=== PATIENT | male | born 1975 | race Caucasian/White ===

== ENCOUNTER 2019-03-06 12:57 | Emergency (ER) | payer OTHER ==
[~2019-03-06] VITALS: Ht 170.2 cm; Wt 71.7 kg
[2019-03-06] MEDS ORDERED: NOVOLOG100 UNIT/1 (13:27)
[2019-03-06] MEDS ORDERED: LANTUS SOL100 UNIT/1 (13:28)
[2019-03-06] MEDS ORDERED: MS CONTIN (13:28)
[2019-03-06] MEDS ORDERED: CLONAZEPAM2 MG (13:29)
== END 2019-03-06 18:21 | disposition home or self-care (01) ==
LOC: ER 12:57
DX: E86.0 Dehydration (principal)

== ENCOUNTER 2019-03-07 12:29 | Emergency (ER) | payer OTHER ==
[~2019-03-07] VITALS: Ht 172.7 cm; Wt 71.7 kg
== END 2019-03-07 18:43 | disposition home or self-care (01) ==
LOC: ER 12:29
DX: E86.0 Dehydration (principal); R19.7 Diarrhea, unspecified; R10.84 Generalized abdominal pain

== ENCOUNTER → 2019-03-07 | Emergency (ER) | payer OTHER ==
[~2019-03-07] VITALS: Ht 170.2 cm; Wt 71.7 kg
[~2019-03-07] MED LIST: CLONAZEPAM2 MG; LANTUS SOL100 UNIT/1; MS CONTIN; NOVOLOG100 UNIT/1
== END | disposition left against medical advice (07) ==
LOC: ER 01:20
DX: Z53.20 Procedure and treatment not carried out because of patient's decision for unspecified reasons (principal)